=== PATIENT | male | born 1965 | race Hispanic/Latino ===

== ENCOUNTER 2018-02-08 16:19 | Inpatient (IN) | payer OTHER ==
[2018-02-08] MEDS ORDERED: Iohexol 240 (50 ml) PO ONE (18:05)
[2018-02-08] MEDS ORDERED: Sodium Chloride 0.9% 1,000 ML IV STA (18:10)
--- NOTE | 2018-02-08 18:16 | ED PDOC ---
HPI: Abdomen Time Seen by Provider: 02/08/18 16:45 Chief Complaint (Nursing): Abdominal Pain Chief Complaint (Provider): Abdominal Pain History Per: Patient History/Exam Limitations: no limitations Onset/Duration Of Symptoms: Days (x3) Current Symptoms Are (Timing): Still Present Location Of Pain/Discomfort: RLQ, Epigastric Associated Symptoms: denies: Fever, Vomiting Additional Complaint(s): 53 year old male presents to the ED complaining of abdominal pain for 3 days. Patient reports pain radiates from the epigastric area down to the RLQ and towards the back. He states his last bowel movement was this morning and was soft almost watery. He indicates he had a similar episode 3 years ago but it resolved on its own. Patient also indicates he had his lap bands removed. denies fever pr vomiting. PMD: Sergio Luna Past Medical History Reviewed: Historical Data, Nursing Documentation, Vital Signs Vital Signs: Last Vital Signs Temp 98.7 F 02/09/18 08:05 Pulse 89 02/09/18 08:05 Resp 20 02/09/18 08:05 BP 137/90 02/09/18 08:05 Pulse Ox 96 02/09/18 08:05 - Medical History PMH: CAD - Surgical History Other surgeries: Lap Bands (removed) - Family History Family History: States: Unknown Family Hx - Social History Current smoker - smoking cessation education provided: No Alcohol: Occasional Drugs: Denies - Allergies Allergies/Adverse Reactions: Allergies Allergy/AdvReac Type Severity Reaction Status Date / Time No Known Allergies Allergy Verified 02/08/18 16:40 Review of Systems ROS Statement: Except As Marked, All Systems Reviewed And Found Negative Constitutional: Negative for: Fever Gastrointestinal: Positive for: Abdominal Pain. Negative for: Nausea, Vomiting , Diarrhea Physical Exam - Reviewed Nursing Documentation Reviewed: Yes Vital Signs Reviewed: Yes - Physical Exam Appears: Positive for: Non-toxic, No Acute Distress Head Exam: Positive for: ATRAUMATIC, NORMOCEPHALIC Skin: Positive for: Normal Color, Warm, Dry Eye Exam: Positive for: Normal appearance ENT: Positive for: Normal ENT Inspection Neck: Positive for: Normal, Painless ROM Cardiovascular/Chest: Positive for: Regular Rate, Rhythm. Negative for: Murmur Respiratory: Positive for: Normal Breath Sounds. Negative for: Wheezing, Respiratory Distress Gastrointestinal/Abdominal: Positive for: Soft, Tenderness (RUQ and RLQ) Extremity: Positive for: Normal ROM Neurologic/Psych: Positive for: Alert, Oriented. Negative for: Motor/Sensory Deficits - Laboratory Results Result Diagrams: 02/08/18 18:27 02/08/18 18:27 - ECG O2 Sat by Pulse Oximetry: 97 (RA) Pulse Ox Interpretation: Normal Medical Decision Making Medical Decision Making: Initial Impression: Abdominal pain; r/o cholecystitis, appendicitis, gastritis Initial Plan: --CT abd/pelvis --CMP --Lipase --CBC --Morphine 4mg IV --Sodium chloride 1000mL IV --Iohexol 50mL PO --Zofran 4mg IV --UA 19:[address] Castillo. Pending CT and work up. Scribe Attestation: Documented by Fahad An acting as a scribe for Emmanuel Polk MD. Provider Scribe Attestation: All medical record entries made by the Scribe were at my direction and personally dictated by me. I have reviewed the chart and agree that the record accurately reflects my personal performance of the history, physical exam, medical decision making, and the department course for this patient. I have also personally directed, reviewed, and agree with the discharge instructions and disposition. Disposition - Clinical Impression Clinical Impression: Acute cholecystitis - Patient ED Disposition Is Patient to be Admitted: Transfer of Care - Disposition Disposition: Transfer of Care Disposition Time: 19:00 Condition: STABLE Patient Signed Over To: Rehan Castillo
[2018-02-08] MEDS ORDERED: Iohexol 240 (50 ml) ONE (18:20)
[2018-02-08 18:33] LABS: BASO % 0.3 % (0.0-2.0); EOS # 0.1 K/uL (0.0-0.7); EOS % 0.9 % (0.0-4.0); LYMPH # 1.7 K/uL (1.0-4.3); MEAN CELL VOLUME 87.1 fl (80.0-94.0); MEAN CORPUSCULAR HGB CONC 32.2 g/dL (33.0-37.0); MEAN PLATELET VOLUME 8.3 fl (7.2-11.7); MONO # 0.7 K/uL (0.0-0.8); MONO % 5.7 % (0.0-10.0); NEUT # 9.3 K/uL (1.8-7.0); NEUT % 79.1 % (50.0-75.0); RBC 5.69 Mil/uL (4.40-5.90); RED CELL DISTRIBUTION WIDTH 14.6 % (11.5-14.5); WHITE BLOOD COUNT 11.8 K/uL (4.8-10.8)
[2018-02-08 18:35] LABS: SQUAMOUS EPITHIAL < 1 /hpf (0-5); URINE BILIRUBIN NEGATIVE (NEGATIVE); URINE BLOOD SMALL (NEGATIVE); URINE CLARITY CLEAR (Clear); URINE COLOR YELLOW (YELLOW); URINE GLUCOSE (UA) NEG (Normal); URINE LEUKOCYTE ESTERASE NEG Leu/uL (Negative); URINE PROTEIN NEGATIVE (NEGATIVE); URINE UROBILINOGEN 0.2-1.0 mg/dL (0.2-1.0)
[2018-02-08 18:41] LABS: ALB/GLOB RATIO 1.4 (1.0-2.1); ALBUMIN 4.5 g/dL (3.5-5.0); ALT/SGPT 28 U/L (21-72); AST/SGOT 23 U/L (17-59); BLOOD UREA NITROGEN 17 mg/dl (9-20); CALCIUM 9.5 mg/dL (8.4-10.2); GFR NON-AFRICAN AMERICAN > 60; LIPASE 68 U/L (23-300)
--- NOTE | 2018-02-08 19:28 | ED PDOC ---
- Laboratory Results Result Diagrams: 02/08/18 18:27 02/08/18 18:27 - ECG O2 Sat by Pulse Oximetry: 97 (RA) Medical Decision Making Medical Decision Makin:00 Patient endorsed to me from Dr. Polk. Pending CT and workup. 21:18 CT Abd/pelvis FINDINGS: Lung bases: Atelectasis posterior lungs. ABDOMEN: Liver: Fatty infiltration of the liver. Gallbladder and bile ducts: Gallstones with extensive gallbladder wall thickening. One of the gallstones in the gallbladder neck or cystic duct. There is inflammation around the gallbladder. Small stone is seen in the distal common bile duct. Pancreas: Unremarkable. No mass. No ductal dilation. Spleen: Unremarkable. No splenomegaly. Adrenals: Unremarkable. No mass. Kidneys and ureters: Subcentimeter right renal cyst. No hydronephrosis. Stomach and bowel: Unremarkable. No obstruction. No mucosal thickening. PELVIS: Appendix: Normal appendix. Bladder: Unremarkable. No mass. Reproductive: Unremarkable as visualized. ABDOMEN and PELVIS: Intraperitoneal space: Unremarkable. No free air. No significant fluid collection. Bones/joints: No acute fracture. No dislocation. Soft tissues: Unremarkable. Vasculature: Unremarkable. No abdominal aortic aneurysm. Lymph nodes: Unremarkable. No enlarged lymph nodes. IMPRESSION: 1. Gallstones with extensive gallbladder wall thickening. One of the gallstones in the gallbladder neck or cystic duct. There is inflammation around the gallbladder. Findings are all consistent with acute cholecystitis. 2. Small stone is seen in the distal common bile duct. No CT evidence of pancreatitis 22:[address] explained to patient who will be admitted under Dr. Pulido who is covering for hospitalist Dr. Harmon with diagnosis of acute cholecystitis. IV Zosyn ordered. Surgical consult placed for Dr. Floyd Payne. Condition fair. Scribe Attestation: Documented by Fahad An acting as a scribe for Rehan Castillo MD. Provider Scribe Attestation: All medical record entries made by the Scribe were at my direction and personally dictated by me. I have reviewed the chart and agree that the record accurately reflects my personal performance of the history, physical exam, medical decision making, and the department course for this patient. I have also personally directed, reviewed, and agree with the discharge instructions and disposition. Disposition Discussed With Dr.: Dallin Pulido (Dr Efraín Payne) - Clinical Impression Clinical Impression: Acute cholecystitis - POA Present On Arrival: None - Disposition Disposition: Admitted as In-Patient Disposition Time: 22:00 Condition: STABLE
[2018-02-08] MEDS ORDERED: Iohexol 300 100 ML IJ ONE (20:40)
[2018-02-08] MEDS ORDERED: Sodium Chloride 0.9% 50 ML IV ONE (20:40)
[2018-02-08] MEDS ORDERED: Piperacillin/Tazobact 3.375 GM in Sodium Chloride 0.9% 100 ML IV STA (21:59)
[2018-02-08] MEDS ORDERED: Piperacillin/Tazobact 3.375 gm Inj IVPB ONE ×2 (22:39→23:01)
[2018-02-08] MEDS ORDERED: Morphine 4 MG/ML VIAL ONE (22:41)
--- NOTE | 2018-02-08 22:54 | CP.PCM.HP ---
History of Present Illness - History of Present Illness History of Present Illness: 53 yr old M presents to ED with complaint of severe sharp abdominal pain 04/16 which started today after eating a sandwich. PMHx includes [place] in 2012, negative cardiac catheterization at [facility] 2012, lap band removal 2015. Associated symptoms are 1 episode of nonbilious/nonbloody emesis and nausea. Pain is located in epigastric area and radiates to RLQ and back. Denies exacerbating or alleviating factors. Patient reports similar episodes in the past (1st one was 2.5 yrs ago) which have resolved on their own and for which he never sought medical attention, most recently he had an episode on wednesday as well as in October 2017; all episodes occur after a meal. PMD: Sergio Luna International Marketing Executive: Dr. Polo ([facility]): patient reports normal echo and stress test in 10/2017 PMHx: intermittent elevated blood pressure, [place] in 2012, negative cardiac catheterization at [facility] 2012 SurgHx: lap band s/p removal 2015; anal fistula 1992 FMHx: mother at 67 from pancreatic cancer, father is 86-HTN, strokes, [place] SocHx: denies tobacco, occasional etoh, reports occasional cannabis use Medications: none Allergies: NKDA Code status: Full code Emergency contact: Gina Antoine () [phone] ER course: 180/100 mmHg; HR 81, Temp 98.0 F, Resp rate 16, SpO2 97% -CBC: WBC 11.8, neutrophil % 79.1 -CMP wnl, AST 23, ALT 28, lipase 68, lactic acid 1.0 -UA: small blood, rest wnl -Abd/Pelvis CT: gallstones with extensive gallbladder wall thickening. One of the gallstones in the gallbladder neck or cystic duct. There is inflammation around the gallbladder. Findings are consistent with acute cholecystitis. Small stone seen in the distal common bile duct. No CT evidence of pancreatitis. Fatty liver. -ER treatment: Morphine 4mg IV once, NS 1L IV bolus, Zofran 4mg IV once, Zosyn 3.375gm IV once, Morphine 6mg IV once -repeat BP after pain medication administration: 144/81 mmHg with HR 80 -Blood culture and urine culture pending -Surgery consult: Floyd Gomez Present on Admission - Present on Admission Any Indicators Present on Admission: No History of DVT/PE: No History of Uncontrolled Diabetes: No Urinary Catheter: No Decubitus Ulcer Present: No History Surgical Site Infection Following: None Review of Systems - Constitutional Constitutional: absent: Chills - EENT Eyes: absent: Change in Vision Ears: absent: Dizziness Nose/Mouth/Throat: absent: Sore Throat - Cardiovascular Cardiovascular: absent: Chest Pain, Dyspnea - Respiratory Respiratory: absent: Hemoptysis - Gastrointestinal Gastrointestinal: Abdominal Pain (epigastric to RLQ ), Belching, Nausea, Vomiting. absent: Constipation, Diarrhea - Genitourinary Genitourinary: absent: Difficulty Urinating, Dysuria - Musculoskeletal Musculoskeletal: absent: Arthralgias - Neurological Neurological: absent: Dizziness, Weakness - Endocrine Endocrine: absent: Polydipsia, Polyphagia, Polyuria - Hematologic/Lymphatic Hematologic: absent: Easy Bleeding, Easy Bruising Past Patient History - Past Social History Alcohol: Occasional Drugs: Denies - PSYCHIATRIC Hx Substance Use: No - SURGICAL HISTORY Hx Coronary Stent: Yes - ANESTHESIA Hx Anesthesia: Yes Hx Anesthesia Reactions: No Meds Allergies/Adverse Reactions: Allergies Allergy/AdvReac Type Severity Reaction Status Date / Time No Known Allergies Allergy Verified 02/08/18 16:40 Physical Exam - Constitutional Appears: Other (uncomfortable, in pain) - Head Exam Head Exam: ATRAUMATIC, NORMOCEPHALIC - Eye Exam Eye Exam: EOMI, PERRL - ENT Exam ENT Exam: Mucous Membranes Moist - Neck Exam Neck exam: Positive for: Full Rom. Negative for: Lymphadenopathy - Respiratory Exam Respiratory Exam: Clear to Auscultation Bilateral, NORMAL BREATHING PATTERN. absent: Rales, Rhonchi, Wheezes - Cardiovascular Exam Cardiovascular Exam: REGULAR RHYTHM, +S1, +S2 - GI/Abdominal Exam GI & Abdominal Exam: Normal Bowel Sounds, Soft, Tenderness (severe tenderness to palpation in RUQ, positive schneider's sign) - Extremities Exam Extremities exam: Positive for: full ROM. Negative for: pedal edema - Neurological Exam Neurological exam: Alert, CN II-XII Intact, Oriented x3 - Psychiatric Exam Psychiatric exam: Normal Affect, Normal Mood - Skin Skin Exam: Dry, Normal Color, Warm Results - Vital Signs Recent Vital Signs: Last Vital Signs Temp 98 F 02/08/18 16:41 Pulse 81 02/08/18 16:41 Resp 16 09/04/18 16:41 BP 180/100 H 02/08/18 16:41 Pulse Ox 97 02/08/18 22:25 - Labs Result Diagrams: 02/08/18 18:27 02/08/18 18:27 Labs: Laboratory Results - last 24 hr 02/08/18 02/08/18 02/08/18 18:27 18:27 18:27 WBC 11.8 H RBC 5.69 Hgb 16.0 Hct 49.6 MCV 87.1 MCH 28.0 MCHC 32.2 L RDW 14.6 H Plt Count 246 MPV 8.3 Neut % (Auto) 79.1 H Lymph % (Auto) 14.0 L [place] % (Auto) 5.7 Eos % (Auto) 0.9 Baso % (Auto) 0.3 Neut # (Auto) 9.3 H Lymph # (Auto) 1.7 [place] # (Auto) 0.7 Eos # (Auto) 0.1 Baso # (Auto) 0.0 Sodium 139 Potassium 4.4 Chloride 101 Carbon Dioxide 33 H Anion Gap 9 L BUN 17 Creatinine 1.1 Est GFR ( Amer) > 60 Est GFR (Non-Af Amer) > 60 Random Glucose 114 H Calcium 9.5 Total Bilirubin 0.6 AST 23 ALT 28 Alkaline Phosphatase 44 Total Protein 7.7 Albumin 4.5 Globulin 3.1 Albumin/Globulin Ratio 1.4 Lipase 68 Urine Color Yellow Urine Clarity Clear Urine pH 5.0 Ur Specific [place] 1.023 Urine Protein Negative Urine Glucose (UA) Neg Urine Ketones Negative Urine Blood Small Urine Nitrate Negative Urine Bilirubin Negative Urine Urobilinogen 0.2-1.0 Ur Leukocyte Esterase Neg Urine RBC (Auto) 5 H Urine Microscopic WBC < 1 Ur Squamous Epith Cells < 1 Assessment & Plan - Assessment and Plan (Free Text) Assessment: 53 yr old M admitted for acute cholecystitis with PMHx including [place] in 2012, negative cardiac catheterization at [facility] 2012, lap band removal 2015. Acute Cholecystitis -Abd/Pelvis CT: gallstones with extensive gallbladder wall thickening. One of the gallstones in the gallbladder neck or cystic duct. There is inflammation around the gallbladder. Findings are consistent with acute cholecystitis. Small stone seen in the distal common bile duct. No CT evidence of pancreatitis. Fatty liver. -admit to med surg -NPO, IV fluids, pain management PRN, Zosyn 3.375 gm IV Q6, Zofran PRN nausea/ vomiting -Surgery consult appreciated: Floyd Gomez Elevated BP -chronic, intermittent -patient not on home meds\ -monitor BP DVT prophylaxis -SCD's for now-possible OR tomorrow -Lovenox 40mg SC QD ordered for next day - Date & Time Date: 02/08/18 Time: 22:53
--- NOTE | 2018-02-08 23:17 | CP.PCM.CON ---
<Alonzo Toledo - Last Filed: 02/09/18 07:15> History of Present Illness - History of Present Illness History of Present Illness: General Surgery Consult Note for Dr. Payne Reason for consult: abdominal pain, nausea/vomiting 53 M with PMH that includes presents to [facility] with complaint of abdominal pain and nausea/vomiting. Patient was seen and evaluated in the ED. He reports pain began Wednesday. It developed after eating. Patient decided to see if symptoms resolved because he thought he had food poisioning. He had similar episodes about 3 years ago and in October 2017. Patient reports pain had gotten worse today after eating a sandwich earlier and subsequently had an episode of nausea/ vomiting with NBNB emesis. He rates pain as severe. He describes pain as constant and sharp in epigastrium radiating to RUQ. Eating aggravates symptoms while rest helps. Denies recent illness or sick contacts. Denies fever/chills, chest pain, SOB, palpitations, diarrhea, constipation, incontinence, urinary symptoms. CT abd/pelvis was done in ED and revealed cholelithiasis with pericholecystic fluid,wall thickening and suspected distal CBD stone. ABUS was also ordered. PMD: Dr. Harmon PMH: PSH: lap band s/p removal; anal fistulotomy Medications: Denies Allergies: NKDA FH: pancreatic cancer, HTN, CVA, [place] Social: denies tobacco, occasional etoh, occasional cannabis use, Senior Office Support Assistant Sosa Review of Systems - Review of Systems All systems: reviewed and no additional remarkable complaints except (as per HPI ) Past Patient History - Past Social History Alcohol: Occasional Drugs: Denies - PSYCHIATRIC Hx Substance Use: No - SURGICAL HISTORY Hx Coronary Stent: Yes - ANESTHESIA Hx Anesthesia: Yes Hx Anesthesia Reactions: No Meds Allergies/Adverse Reactions: Allergies Allergy/AdvReac Type Severity Reaction Status Date / Time No Known Allergies Allergy Verified 02/08/18 16:40 Physical Exam - Constitutional Appears: Well, Non-toxic, No Acute Distress - Head Exam Head Exam: ATRAUMATIC, NORMOCEPHALIC - Eye Exam Eye Exam: EOMI, Normal appearance. absent: Scleral icterus Pupil Exam: PERRL - ENT Exam ENT Exam: Mucous Membranes Moist - Respiratory Exam Respiratory Exam: NORMAL BREATHING PATTERN - Cardiovascular Exam Cardiovascular Exam: REGULAR RHYTHM - GI/Abdominal Exam GI & Abdominal Exam: Normal Bowel Sounds, Soft, Tenderness (epigastrium). absent: Distended, Rebound, Rigid Additional comments: (-) schneider's sign - Extremities Exam Extremities exam: Positive for: normal capillary refill, pedal pulses present. Negative for: calf tenderness - Back Exam Back exam: absent: CVA tenderness (L), CVA tenderness (R) - Neurological Exam Neurological exam: Alert, Oriented x3 - Psychiatric Exam Psychiatric exam: Normal Affect, Normal Mood - Skin Skin Exam: Dry, Intact, Warm Results - Vital Signs Recent Vital Signs: Last Vital Signs Temp 98 F 02/08/18 16:41 Pulse 81 02/08/18 16:41 Resp 16 02/08/18 16:41 BP 180/100 H 02/08/18 16:41 Pulse Ox 97 02/08/18 22:25 - Labs Result Diagrams: 02/08/18 18:27 02/08/18 18:27 Labs: Laboratory Results - last 24 hr 02/08/18 02/08/18 02/08/18 18:27 18:27 18:27 WBC 11.8 H RBC 5.69 Hgb 16.0 Hct 49.6 MCV 87.1 MCH 28.0 MCHC 32.2 L RDW 14.6 H Plt Count 246 MPV 8.3 Neut % (Auto) 79.1 H Lymph % (Auto) 14.0 L [place] % (Auto) 5.7 Eos % (Auto) 0.9 Baso % (Auto) 0.3 Neut # (Auto) 9.3 H Lymph # (Auto) 1.7 [place] # (Auto) 0.7 Eos # (Auto) 0.1 Baso # (Auto) 0.0 Sodium 139 Potassium 4.4 Chloride 101 Carbon Dioxide 33 H Anion Gap 9 L BUN 17 Creatinine 1.1 Est GFR ( Amer) > 60 Est GFR (Non-Af Amer) > 60 Random Glucose 114 H Calcium 9.5 Total Bilirubin 0.6 AST 23 ALT 28 Alkaline Phosphatase 44 Total Protein 7.7 Albumin 4.5 Globulin 3.1 Albumin/Globulin Ratio 1.4 Lipase 68 Urine Color Yellow Urine Clarity Clear Urine pH 5.0 Ur Specific [place] 1.023 Urine Protein Negative Urine Glucose (UA) Neg Urine Ketones Negative Urine Blood Small Urine Nitrate Negative Urine Bilirubin Negative Urine Urobilinogen 0.2-1.0 Ur Leukocyte Esterase Neg Urine RBC (Auto) 5 H Urine Microscopic WBC < 1 Ur Squamous Epith Cells < 1 Assessment & Plan - Assessment and Plan (Free Text) Assessment: 53 M who presents for abdominal pain and nausea/vomiting; CT abd/pelvis shows cholelithiasis with pericholecystic fluid,wall thickening and suspected distal CBD stone Plan: -NPO -IV fluds -IV abx -Analgesics/Anti-emetics PRN -f/u ABUS -I's&O's -f/u AM labs -Further recommendation as per Dr. Elmer Toledo PGY2 - Date & Time Date: 02/09/18 Time: 00:00 <Sixto Medrano - Last Filed: 02/09/18 11:58> History of Present Illness - History of Present Illness History of Present Illness: Patient was seen and examined at the bedside. Agree with resident's note above. Meds - Medications Medications: Current Medications Hydromorphone HCl (Dilaudid) 1 mg IVP Q4 PRN PRN Reason: Pain, severe (8-10) Last Admin: 02/09/18 08:33 Dose: 1 mg Piperacillin Sod/Tazobactam (Sod 3.375 gm/ Sodium Chloride) 100 mls @ 100 mls/ hr IVPB Q6H SOURAV PRN Reason: Protocol Last Admin: 02/09/18 06:07 Dose: 100 mls/hr Potassium Chloride/Dextrose/Sod Cl (Potassium Chl 20 Meq In D5-1/2ns) 1,000 mls @ 125 mls/hr IV .Q8H SOURAV Stop: 02/10/18 07:47 Ondansetron HCl (Zofran Inj) 4 mg IVP Q6 PRN PRN Reason: Nausea/Vomiting Physical Exam - GI/Abdominal Exam Additional comments: soft, tender in the epigastrium and RUQ, ND, BS+, no rebound, no guarding, obese , well healed scars from prior bariatric surgeries Results - Vital Signs Recent Vital Signs: Last Vital Signs Temp 98.7 F 02/09/18 09:00 Pulse 89 02/09/18 09:00 Resp 20 02/09/18 09:00 BP 137/90 02/09/18 09:00 Pulse Ox 96 02/09/18 09:00 - Labs Result Diagrams: 02/09/18 07:30 09/05/18 07:30 Labs: Laboratory Results - last 24 hr 02/08/18 02/08/18 02/08/18 18:27 18:27 18:27 WBC 11.8 H RBC 5.69 Hgb 16.0 Hct 49.6 MCV 87.1 MCH 28.0 MCHC 32.2 L RDW 14.6 H Plt Count 246 MPV 8.3 Neut % (Auto) 79.1 H Lymph % (Auto) 14.0 L [place] % (Auto) 5.7 Eos % (Auto) 0.9 Baso % (Auto) 0.3 Neut # (Auto) 9.3 H Lymph # (Auto) 1.7 [place] # (Auto) 0.7 Eos # (Auto) 0.1 Baso # (Auto) 0.0 Sodium 139 Potassium 4.4 Chloride 101 Carbon Dioxide 33 H Anion Gap 9 L BUN 17 Creatinine 1.1 Est GFR ( Amer) > 60 Est GFR (Non-Af Amer) > 60 Random Glucose 114 H Lactic Acid Calcium 9.5 Total Bilirubin 0.6 AST 23 ALT 28 Alkaline Phosphatase 44 Total Protein 7.7 Albumin 4.5 Globulin 3.1 Albumin/Globulin Ratio 1.4 Lipase 68 Urine Color Yellow Urine Clarity Clear Urine pH 5.0 Ur Specific [place] 1.023 Urine Protein Negative Urine Glucose (UA) Neg Urine Ketones Negative Urine Blood Small Urine Nitrate Negative Urine Bilirubin Negative Urine Urobilinogen 0.2-1.0 Ur Leukocyte Esterase Neg Urine RBC (Auto) 5 H Urine Microscopic WBC < 1 Ur Squamous Epith Cells < 1 02/09/18 02/09/18 02/09/18 01:05 07:30 07:30 WBC 11.5 H RBC 5.41 Hgb 15.4 Hct 47.0 MCV 86.9 MCH 28.5 MCHC 32.8 L RDW 14.4 Plt Count 211 MPV 8.0 Neut % (Auto) 74.2 Lymph % (Auto) 14.3 L [place] % (Auto) 9.7 Eos % (Auto) 1.4 Baso % (Auto) 0.4 Neut # (Auto) 8.6 H Lymph # (Auto) 1.7 [place] # (Auto) 1.1 H Eos # (Auto) 0.2 Baso # (Auto) 0.0 Sodium 137 Potassium 3.9 Chloride 100 Carbon Dioxide 31 H Anion Gap 10 BUN 11 Creatinine 1.0 Est GFR ( Amer) > 60 Est GFR (Non-Af Amer) > 60 Random Glucose 111 H Lactic Acid 1.0 Calcium 8.8 Total Bilirubin 1.2 AST 18 ALT 30 Alkaline Phosphatase 36 L Total Protein 7.2 Albumin 4.0 Globulin 3.2 Albumin/Globulin Ratio 1.3 Lipase Urine Color Urine Clarity Urine pH Ur Specific [place] Urine Protein Urine Glucose (UA) Urine Ketones Urine Blood Urine Nitrate Urine Bilirubin Urine Urobilinogen Ur Leukocyte Esterase Urine RBC (Auto) Urine Microscopic WBC Ur Squamous Epith Cells - Imaging and Cardiology CT scan - abdomen Status: Image reviewed by me, Report reviewed by me Assessment & Plan - Assessment and Plan (Free Text) Plan: - Keep NPO - IV fluids - pain control - Continue Zosyn - MRCP - GI consultation - repeat labs in am - Will require cholecystectomy once choledocholithiasis gets resolved - Will follow
[2018-02-09] MEDS: Lactated Ringer's 1,000 ML IV SCH ×2 (01:08→07:41)
[2018-02-09] MEDS ORDERED: Piperacillin/Tazobact 3.375 GM in Sodium Chloride 0.9% 100 ML IVPB SCH (04:00)
[2018-02-09] MEDS: Piperacillin/Tazobact 3.375 GM in Sodium Chloride 0.9% 100 ML IVPB SCH ×4 (06:07→22:59)
[2018-02-09] MEDS ORDERED: Enoxaparin 40 mg Syringe SC SCH (09:00)
[2018-02-09 09:16] LABS: BASO % 0.4 % (0.0-2.0); EOS # 0.2 K/uL (0.0-0.7); EOS % 1.4 % (0.0-4.0); HEMOGLOBIN 15.4 g/dL (12.0-18.0); LYMPH # 1.7 K/uL (1.0-4.3); LYMPH % 14.3 % (20.0-40.0); MEAN CELL VOLUME 86.9 fl (80.0-94.0); MEAN CORPUSCULAR HEMOGLOBIN 28.5 pg (27.0-31.0); MEAN CORPUSCULAR HGB CONC 32.8 g/dL (33.0-37.0); MONO # 1.1 K/uL (0.0-0.8); MONO % 9.7 % (0.0-10.0); NEUT # 8.6 K/uL (1.8-7.0); NEUT % 74.2 % (50.0-75.0); RBC 5.41 Mil/uL (4.40-5.90); RED CELL DISTRIBUTION WIDTH 14.4 % (11.5-14.5); WHITE BLOOD COUNT 11.5 K/uL (4.8-10.8)
[2018-02-09 09:22] LABS: ALB/GLOB RATIO 1.3 (1.0-2.1); ALT/SGPT 30 U/L (21-72); AST/SGOT 18 U/L (17-59); BLOOD UREA NITROGEN 11 mg/dl (9-20); CALCIUM 8.8 mg/dL (8.4-10.2); GFR NON-AFRICAN AMERICAN > 60
--- NOTE | 2018-02-09 09:59 | CP.PCM.PN ---
Addendum entered and electronically signed by Elsie Jorgensen MD 02/09/18 13: 05: As per surgery (Dr. Henson): consulted GI (Dr. Amador - requested MRCP). Will consider lap sarika if stable after stone removal. Pt to remain NPO, Continue IVF, Continue abx, Continue pain meds PRN. Original Note: <Elsie Jorgensen - Last Filed: 02/09/18 11:35> Subjective - Date & Time of Evaluation Date of Evaluation: 02/09/18 Time of Evaluation: 09:53 - Subjective Subjective: Patient seen bedside in no acute distress. He complains of abdominal pain, although improved from yesterday. He denies dizziness, nausea, vomiting, chest pain at rest and during activity, shortness of breath, diarrhea, and constipation. Recently evaluated by [facility] 10/11/2017: Echo - EF 59%; mild mitral regurg, mild tricuspid regurg; abnormal E/A ratio suggestive of diastolic dysfunction Exercise Stress Test - no evidence for ischemia, excellent exercise tolerance Patient is hemodynamically stable and has functional capacity of 4 METS. He is medically optimized and medically cleared as CRI class II risk (1 point, prior [place] 2012, 0.9% risk) for a low-risk procedure. Objective - Vital Signs/Intake and Output Vital Signs (last 24 hours): Temp Pulse Resp BP Pulse Ox 98.7 F 89 20 137/90 97 02/09/18 08:05 02/09/18 08:05 02/09/18 08:05 02/09/18 08:05 02/09/18 08:20 - Medications Medications: Current Medications Enoxaparin Sodium (Lovenox) 40 mg SC DAILY [facility] PRN Reason: Protocol Hydromorphone HCl (Dilaudid) 1 mg IVP Q4 PRN PRN Reason: Pain, severe (8-10) Last Admin: 02/09/18 08:33 Dose: 1 mg Piperacillin Sod/Tazobactam (Sod 3.375 gm/ Sodium Chloride) 100 mls @ 100 mls/ hr IVPB Q6H [facility] PRN Reason: Protocol Last Admin: 02/09/18 06:07 Dose: 100 mls/hr Potassium Chloride/Dextrose/Sod Cl (Potassium Chl 20 Meq In D5-1/2ns) 1,000 mls @ 125 mls/hr IV .Q8H [facility] Stop: 02/10/18 07:47 Ondansetron HCl (Zofran Inj) 4 mg IVP Q6 PRN PRN Reason: Nausea/Vomiting - Labs Labs: 02/09/18 07:30 02/09/18 07:30 - Constitutional Appears: Non-toxic - Head Exam Head Exam: ATRAUMATIC, NORMOCEPHALIC - Eye Exam Eye Exam: Normal appearance - ENT Exam ENT Exam: Mucous Membranes Moist, Normal Exam - Neck Exam Neck Exam: Full ROM - Respiratory Exam Respiratory Exam: Clear to Ausculation Bilateral, NORMAL BREATHING PATTERN - Cardiovascular Exam Cardiovascular Exam: REGULAR RHYTHM - GI/Abdominal Exam GI & Abdominal Exam: Tenderness (RUQ and RLQ (light palpation)). absent: Guarding - Extremities Exam Extremities Exam: Normal Inspection - Neurological Exam Neurological Exam: Alert, Awake, Oriented x3 - Psychiatric Exam Psychiatric exam: Normal Affect, Normal Mood - Skin Skin Exam: Dry, Intact, Normal Color, Warm Assessment and Plan - Assessment and Plan (Free Text) Assessment: Assessment: 53 yr old M admitted for acute cholecystitis with PMHx of [place] in 2012, negative cardiac catheterization at [place] 2012, lap band removal 2015. Acute Cholecystitis -Abd/Pelvis CT: Findings consistent with acute cholecystitis. No CT evidence of pancreatitis. Fatty liver. -U/S: pending -NPO -IV fluids: D5 0.5 NS + 20 meq K -Pain management: Dilaudid 1 mg IVP Q4 PRN (severe 8-10) -Zosyn 3.375 gm IV Q6 -Zofran 4 mg IVP Q6 PRN -Waiting on Surgery (Dr. Payne) recommendations -[facility] 10/11/2017: -Echo - EF 59%; mild mitral and tricuspid regurg, abnormal E/A ratio suggestive of diastolic dysfunction -Exercise Stress Test - no evidence for ischemia, excellent exercise tolerance Elevated BP Chronic, intermittent Noncompliant with home medications Monitor BP DVT prophylaxis SCD Possible OR today <Ella Scott - Last Filed: 02/09/18 18:08> Objective - Vital Signs/Intake and Output Vital Signs (last 24 hours): Temp Pulse Resp BP Pulse Ox 98.0 F 92 H 20 125/84 94 L 02/09/18 17:00 02/09/18 17:00 02/09/18 17:00 02/09/18 17:00 02/09/18 17:00 - Medications Medications: Current Medications Hydromorphone HCl (Dilaudid) 1 mg IVP Q4 PRN PRN Reason: Pain, severe (8-10) Last Admin: 02/09/18 08:33 Dose: 1 mg Piperacillin Sod/Tazobactam (Sod 3.375 gm/ Sodium Chloride) 100 mls @ 100 mls/ hr IVPB Q6H [facility] PRN Reason: Protocol Last Admin: 02/09/18 12:48 Dose: 100 mls/hr Potassium Chloride/Dextrose/Sod Cl (Potassium Chl 20 Meq In D5-1/2ns) 1,000 mls @ 125 mls/hr IV .Q8H [facility] Stop: 02/10/18 07:47 Last Admin: 02/09/18 11:54 Dose: 125 mls/hr Ondansetron HCl (Zofran Inj) 4 mg IVP Q6 PRN PRN Reason: Nausea/Vomiting Pantoprazole Sodium (Protonix Inj) 40 mg IVP DAILY [facility] - Labs Labs: 02/09/18 07:30 02/09/18 07:30 Attending/Attestation - Attestation I have personally seen and examined this patient.: Yes I have fully participated in the care of the patient.: Yes I have reviewed all pertinent clinical information, including history, physical exam and plan: Yes Notes (Text): 02/09/18 18:08 Seen, examined, and discussed with resident. Agree with findings and plan as above.
--- NOTE | 2018-02-09 10:07 | CT ---
Date of service: 02/08/2018 PROCEDURE: CT Abdomen and Pelvis with contrast HISTORY: abd pain r sided COMPARISON: None. TECHNIQUE: Contrast dose: 95 mL Omnipaque 300 Radiation dose: Total exam DLP = 957 mGy-cm. This CT exam was performed using one or more of the following dose reduction techniques: Automated exposure control, adjustment of the mA and/or kV according to patient size, and/or use of iterative reconstruction technique. FINDINGS: LOWER THORAX: Unremarkable. LIVER: Unremarkable. No gross lesion or ductal dilatation. GALLBLADDER AND BILE DUCTS: UnremarkableMultiple gallstones within the gallbladder neck present measuring up to 1.1 cm. Gallbladder wall thickening and pericholecystic a amorphous edema also suggested. An acute cholecystitis needs to be considered. A 2.7 mm stone is also suggested in the common bile duct at the level the pancreatic head. PANCREAS: Apart from the stone in the common bile duct, no worrisome CT pathology suggested. . SPLEEN: Unremarkable. ADRENALS: Unremarkable. No mass. KIDNEYS AND URETERS: Unremarkable. No hydronephrosis. No solid mass. VASCULATURE: Unremarkable. No aortic aneurysm. BOWEL: Unremarkable. No obstruction. No gross mural thickening. APPENDIX: Normal appendix. PERITONEUM: Unremarkable. No free fluid. No free air. LYMPH NODES: Unremarkable. No enlarged lymph nodes. BLADDER: Unremarkable. REPRODUCTIVE: Unremarkable. BONES: No acute fracture. L5-S1 spondylosis with degenerative disc disease. OTHER FINDINGS: None. IMPRESSION: Gallbladder pathology is referenced above compatible with acute cholecystitis. Concordant results (preliminary interpretation) provided by [facility].
--- NOTE | 2018-02-09 11:48 | CP.PCM.PN ---
<GaneshAggie L - Last Filed: 02/09/18 11:44> Subjective - Date & Time of Evaluation Date of Evaluation: 02/09/18 Time of Evaluation: 11:44 - Subjective Subjective: General Surgery Pt seen and examined this AM with Dr. Medrano. He continues to have some abdominal pain however reports feeling better compared to yesterday. Results of imaging discussed with pt and the need for GI work up. Pt understand and is agreeable with plan. Labs and vitals noted PE Gen: Pt standing in room in NAD Skin: warm and dry Cardio: S1S2 rrr Lungs: CTA bilaterally Abd: Soft, (+) RUQ tenderness, (+) epigastric tenderness, (+) schneider;s A/P Cholecystitis As per CT scan, pt with stone in CBD Discussed need for GI with hospitalist, order entered for Dr. Ngo Pt discussed with Dr. Ngo, he is requesting a MRCP Pt to remain NPO Continue IVF Continue abx Continue pain meds prn. After stone in CBD removed and if labs okay, then pt for OR for lap sarika Objective - Vital Signs/Intake and Output Vital Signs (last 24 hours): Temp Pulse Resp BP Pulse Ox 98.7 F 89 20 137/90 96 02/09/18 09:00 02/09/18 09:00 02/09/18 09:00 02/09/18 09:00 02/09/18 09:00 - Medications Medications: Current Medications Hydromorphone HCl (Dilaudid) 1 mg IVP Q4 PRN PRN Reason: Pain, severe (8-10) Last Admin: 02/09/18 08:33 Dose: 1 mg Piperacillin Sod/Tazobactam (Sod 3.375 gm/ Sodium Chloride) 100 mls @ 100 mls/ hr IVPB Q6H [facility] PRN Reason: Protocol Last Admin: 02/09/18 06:07 Dose: 100 mls/hr Potassium Chloride/Dextrose/Sod Cl (Potassium Chl 20 Meq In D5-1/2ns) 1,000 mls @ 125 mls/hr IV .Q8H [facility] Stop: 02/10/18 07:47 Ondansetron HCl (Zofran Inj) 4 mg IVP Q6 PRN PRN Reason: Nausea/Vomiting - Labs Labs: 02/09/18 07:30 02/09/18 07:30 <Sixto Medrano - Last Filed: 02/09/18 11:59> Subjective - Subjective Subjective: Patient was seen and examined at the bedside. Agree with note above. Objective - Vital Signs/Intake and Output Vital Signs (last 24 hours): Temp Pulse Resp BP Pulse Ox 98.7 F 89 20 137/90 96 02/09/18 09:00 02/09/18 09:00 02/09/18 09:00 02/09/18 09:00 02/09/18 09:00 - Medications Medications: Current Medications Hydromorphone HCl (Dilaudid) 1 mg IVP Q4 PRN PRN Reason: Pain, severe (8-10) Last Admin: 02/09/18 08:33 Dose: 1 mg Piperacillin Sod/Tazobactam (Sod 3.375 gm/ Sodium Chloride) 100 mls @ 100 mls/ hr IVPB Q6H [facility] PRN Reason: Protocol Last Admin: 02/09/18 06:07 Dose: 100 mls/hr Potassium Chloride/Dextrose/Sod Cl (Potassium Chl 20 Meq In D5-1/2ns) 1,000 mls @ 125 mls/hr IV .Q8H [facility] Stop: 02/10/18 07:47 Last Admin: 02/09/18 11:54 Dose: 125 mls/hr Ondansetron HCl (Zofran Inj) 4 mg IVP Q6 PRN PRN Reason: Nausea/Vomiting - Labs Labs: 02/09/18 07:30 02/09/18 07:30
[2018-02-09] MEDS: Potassium Ch 20mEq in D5-1/2NS 1,000 ML IV SCH ×3 (11:54→23:19)
--- NOTE | 2018-02-09 12:57 | US ---
Date of service: 02/09/2018 HISTORY: evaluate for cholecystitis COMPARISON: February 08, 2018. CT abdomen and pelvis. TECHNIQUE: Sonographic evaluation of the right upper quadrant of the abdomen. FINDINGS: LIVER: Measures 19.1 cm in length. Hepatopedal blood flow. Fatty infiltration manifest ultrasonographically as increasedNormal echogenicity of the liver parenchyma. No mass. No intrahepatic bile duct dilatation. GALLBLADDER: Gallbladder wall thickening and trace pericholecystic fluid. Gallstones identified on recent CT are not apparent. No sonographic Parish's sign. COMMON BILE DUCT: Measures 6.8 mm. No stones. No dilatation. PANCREAS: Unremarkable as visualized. No mass. No ductal dilatation. RIGHT KIDNEY: Measures 5.2 x 11.3 cm in length. Normal echogenicity. No calculus, mass, or hydronephrosis. AORTA: No aneurysmal dilatation. IVC: Unremarkable. OTHER FINDINGS: None . IMPRESSION: Distended gallbladder without visible gallstones. Gallbladder wall thickening and pericholecystic fluid without sonographic Parish's sign.
--- NOTE | 2018-02-09 18:26 | MRI ---
Date of service: 02/09/18 MRCP Indication: Stones in CBD on CT scan Technique: Multiplanar, multisequence MR images of the abdomen were obtained, including heavily T2 weighted MRCP images of the biliary system. Rotating maximum intensity projection images of the biliary system were generated. A total of 519 images were submitted for review. Comparison: Gallbladder ultrasound performed 02/09/18 ; CT abdomen and pelvis with contrast performed 02/08/18 Findings: Hepatic steatosis. The gallbladder appears thick walled. Mild pericholecystic edema. Cholelithiasis including 6 mm calculus at the gallbladder neck. 3 mm filling defect within the distal CBD consistent with calculus. There is no intrahepatic biliary ductal dilatation. Common bile duct measures approximately 6 mm in diameter. Question mild narrowing of the common bile duct at its midportion. The pancreatic duct appears within normal limits of caliber. No filling defects are seen in the pancreatic duct. 7 mm T2 right renal hyperintensity, possibly cyst. 19 mm probable splenule. The noncontrast adrenal glands, kidneys, spleen, and pancreas appear otherwise grossly unremarkable. No bulky abdominal lymphadenopathy is seen. Small hiatal hernia. No acute osseous abnormality is detected. Impression: Gallbladder wall thickening and mild pericholecystic edema. Cholelithiasis including 6 mm calculus noted at the gallbladder neck. 3 mm filling defect within the distal common bile duct consistent with calculus is seen on prior CT. Constellation of findings appear consistent with acute cholecystitis. Additionally, there is evidence of narrowing of the common bile duct at its midportion. Correlate clinically. 7 mm probable right renal cyst Hepatic steatosis.
[2018-02-10] MEDS: Potassium Ch 20mEq in D5-1/2NS 1,000 ML IV SCH (00:30)
[2018-02-10] MEDS: Piperacillin/Tazobact 3.375 GM in Sodium Chloride 0.9% 100 ML IVPB SCH ×3 (05:54→17:02)
[2018-02-10 06:21] LABS: BASO % 0.3 % (0.0-2.0); EOS # 0.2 K/uL (0.0-0.7); EOS % 2.4 % (0.0-4.0); HEMOGLOBIN 15.2 g/dL (12.0-18.0); LYMPH # 1.5 K/uL (1.0-4.3); LYMPH % 18.8 % (20.0-40.0); MEAN CELL VOLUME 87.6 fl (80.0-94.0); MEAN CORPUSCULAR HEMOGLOBIN 28.8 pg (27.0-31.0); MEAN CORPUSCULAR HGB CONC 32.9 g/dL (33.0-37.0); MONO # 0.8 K/uL (0.0-0.8); MONO % 9.9 % (0.0-10.0); NEUT # 5.6 K/uL (1.8-7.0); NEUT % 68.6 % (50.0-75.0); RBC 5.26 Mil/uL (4.40-5.90); RED CELL DISTRIBUTION WIDTH 14.5 % (11.5-14.5); WHITE BLOOD COUNT 8.2 K/uL (4.8-10.8)
[2018-02-10 06:37] LABS: ALB/GLOB RATIO 1.3 (1.0-2.1); ALBUMIN 3.9 g/dL (3.5-5.0); ALT/SGPT 25 U/L (21-72); AST/SGOT 17 U/L (17-59); BLOOD UREA NITROGEN 10 mg/dl (9-20); CALCIUM 8.9 mg/dL (8.4-10.2); GFR NON-AFRICAN AMERICAN > 60
[2018-02-10 06:44] LABS: INR 1.3; PROTHROMBIN TIME 14.3 Seconds (9.8-13.1)
[2018-02-10 06:47] LABS: PARTIAL THROMBOPLASTIN TIME 31.6 Seconds (25.6-37.1)
--- NOTE | 2018-02-10 07:57 | CP.PCM.PN ---
<Chris Stoutaf - Last Filed: 02/10/18 07:54> Subjective - Date & Time of Evaluation Date of Evaluation: 02/10/18 Time of Evaluation: 07:54 - Subjective Subjective: Surgery: Dr. Medrano Pt seen and examined. No acute overnight events. States he feels well this AM and pain is well controlled. He admits to being hungry but denies any other complaints. Denies nausea/vomiting, fevers/chills. Objective - Vital Signs/Intake and Output Vital Signs (last 24 hours): Temp Pulse Resp BP Pulse Ox 99.6 F 88 18 142/82 96 02/09/18 23:41 02/09/18 23:41 02/09/18 23:41 02/09/18 23:41 02/09/18 23:41 Intake and Output: 02/10/18 02/10/18 06:59 18:59 Intake Total 375 Balance 375 - Medications Medications: Current Medications Hydromorphone HCl (Dilaudid) 1 mg IVP Q4 PRN PRN Reason: Pain, severe (8-10) Last Admin: 02/09/18 23:18 Dose: 1 mg Piperacillin Sod/Tazobactam (Sod 3.375 gm/ Sodium Chloride) 100 mls @ 100 mls/ hr IVPB Q6H [facility] PRN Reason: Protocol Last Admin: 02/10/18 05:54 Dose: 100 mls/hr Ondansetron HCl (Zofran Inj) 4 mg IVP Q6 PRN PRN Reason: Nausea/Vomiting Pantoprazole Sodium (Protonix Inj) 40 mg IVP DAILY [facility] - Labs Labs: 02/10/18 05:40 02/10/18 05:40 PT 14.3 Seconds (9.8-13.1) H 02/10/18 05:40 INR 1.3 02/10/18 05:40 APTT 31.6 Seconds (25.6-37.1) 02/10/18 05:40 - Constitutional Appears: No Acute Distress - Head Exam Head Exam: ATRAUMATIC, NORMOCEPHALIC - ENT Exam ENT Exam: Mucous Membranes Moist - Respiratory Exam Respiratory Exam: NORMAL BREATHING PATTERN - Cardiovascular Exam Cardiovascular Exam: RRR - GI/Abdominal Exam GI & Abdominal Exam: Soft, Tenderness (RUQ ). absent: Distended, Guarding, Rebound - Extremities Exam Extremities Exam: absent: Calf Tenderness - Neurological Exam Neurological Exam: Alert, Awake, Oriented x3 - Skin Skin Exam: Dry, Warm Assessment and Plan - Assessment and Plan (Free Text) Assessment: 53M with cholecystitis & choledocholithiasis Plan: - MRCP showed 3mm stone in distal CBD - GI is on board and will discuss ERCP with them prior to OR - plan for cholecystectomy after ERCP - d/w Dr. Mitchell Stout <Sixto Medrano - Last Filed: 02/10/18 17:17> Subjective - Date & Time of Evaluation Time of Evaluation: 16:00 - Subjective Subjective: Patient was seen and examined at the bedside. Agree with resident's note above Objective - Vital Signs/Intake and Output Vital Signs (last 24 hours): Temp Pulse Resp BP Pulse Ox 97.9 F 82 18 149/72 95 02/10/18 16:30 02/10/18 16:30 02/10/18 16:30 02/10/18 16:30 02/10/18 16:30 Intake and Output: 02/10/18 02/10/18 06:59 18:59 Intake Total 375 Balance 375 - Medications Medications: Current Medications Hydromorphone HCl (Dilaudid) 1 mg IVP Q4 PRN PRN Reason: Pain, severe (8-10) Last Admin: 02/09/18 23:18 Dose: 1 mg Piperacillin Sod/Tazobactam (Sod 3.375 gm/ Sodium Chloride) 100 mls @ 100 mls/ hr IVPB Q6H [facility] PRN Reason: Protocol Last Admin: 02/10/18 17:02 Dose: 100 mls/hr Potassium Chloride/Dextrose/Sod Cl (Potassium Chl 20 Meq In D5-Ns) 1,000 mls @ 125 mls/hr IV .Q8H [facility] Stop: 02/11/18 12:25 Ciprofloxacin (Cipro 400mg/200ml Dsw) 400 mg in 200 mls @ 200 mls/hr IVPB [facility]NC[facility] ONE PRN Reason: Protocol Stop: 02/11/18 10:59 Indomethacin (Indocin Suppository) 100 mg [place] ONCE ONE Stop: 02/11/18 10:31 Ondansetron HCl (Zofran Inj) 4 mg IVP Q6 PRN PRN Reason: Nausea/Vomiting Pantoprazole Sodium (Protonix Inj) 40 mg IVP DAILY [facility] Last Admin: 02/10/18 08:36 Dose: 40 mg - Labs Labs: 02/10/18 05:40 02/10/18 05:40 PT 14.3 Seconds (9.8-13.1) H 02/10/18 05:40 INR 1.3 02/10/18 05:40 APTT 31.6 Seconds (25.6-37.1) 02/10/18 05:40 - GI/Abdominal Exam Additional comments: soft, NT, ND, BS+, no rebound, no guarding, negative Parish's sign Assessment and Plan - Assessment and Plan (Free Text) Plan: - start clear liquid diet - NPO after midnight - For ERCP with GI tomorrow - repeat labs in am - Continue antibiotics - Will follow
[2018-02-10] MEDS ORDERED: Enoxaparin 40 mg Syringe SC SCH (09:00)
--- NOTE | 2018-02-10 09:54 | CP.PCM.PN ---
<Elsie Jorgensen - Last Filed: 02/10/18 10:15> Subjective - Date & Time of Evaluation Date of Evaluation: 02/10/18 Time of Evaluation: 08:30 - Subjective Subjective: Patient seen bedside in no acute distress. He complains of very mild abdominal pain but significantly improved from admission. Patient was quite irritable and expressed frustration that the ERCP is scheduled for tomorrow. He is hemodynamically stable and denies dizziness, nausea, vomiting, chest pain at rest and during activity, shortness of breath, diarrhea, and constipation. Objective - Vital Signs/Intake and Output Vital Signs (last 24 hours): Temp Pulse Resp BP Pulse Ox 98 F 80 20 134/92 H 95 02/10/18 08:14 02/10/18 08:14 02/10/18 08:14 02/10/18 08:14 02/10/18 08:14 Intake and Output: 02/10/18 02/10/18 06:59 18:59 Intake Total 375 Balance 375 - Medications Medications: Current Medications Hydromorphone HCl (Dilaudid) 1 mg IVP Q4 PRN PRN Reason: Pain, severe (8-10) Last Admin: 02/09/18 23:18 Dose: 1 mg Piperacillin Sod/Tazobactam (Sod 3.375 gm/ Sodium Chloride) 100 mls @ 100 mls/ hr IVPB Q6H [facility] PRN Reason: Protocol Last Admin: 02/10/18 05:54 Dose: 100 mls/hr Ondansetron HCl (Zofran Inj) 4 mg IVP Q6 PRN PRN Reason: Nausea/Vomiting Pantoprazole Sodium (Protonix Inj) 40 mg IVP DAILY [facility] Last Admin: 02/10/18 08:36 Dose: 40 mg - Labs Labs: 02/10/18 05:40 02/10/18 05:40 PT 14.3 Seconds (9.8-13.1) H 02/10/18 05:40 INR 1.3 02/10/18 05:40 APTT 31.6 Seconds (25.6-37.1) 02/10/18 05:40 - Constitutional Appears: Non-toxic - Head Exam Head Exam: NORMAL INSPECTION - Eye Exam Eye Exam: Normal appearance - ENT Exam ENT Exam: Mucous Membranes Moist, Normal Exam - Neck Exam Neck Exam: Normal Inspection - Respiratory Exam Respiratory Exam: Clear to Ausculation Bilateral, NORMAL BREATHING PATTERN - Cardiovascular Exam Cardiovascular Exam: REGULAR RHYTHM - GI/Abdominal Exam GI & Abdominal Exam: Tenderness. absent: Distended, Guarding, Rebound Additional comments: mild, RUQ - Back Exam Back Exam: NORMAL INSPECTION - Neurological Exam Neurological Exam: Alert, Awake, Oriented x3 - Psychiatric Exam Psychiatric exam: Normal Affect, Normal Mood - Skin Skin Exam: Dry, Normal Color, Warm Assessment and Plan - Assessment and Plan (Free Text) Assessment: 53 yr old M admitted for acute cholecystitis with PMHx of [place] in 2012, negative cardiac catheterization at [place] 2012, lap band removal 2015. Acute Cholecystitis -NPO -IV fluids: D5 0.5 NS + 20 meq K -Pain management: Dilaudid 1 mg IVP Q4 PRN (severe 8-10) -Zosyn 3.375 gm IV Q6 -Zofran 4 mg IVP Q6 PRN -Abd/Pelvis CT: Findings consistent with acute cholecystitis. No CT evidence of pancreatitis. Fatty liver. -U/S: Distended gallbladder without visible gallstones. Gallbladder wall thickening and pericholecystic fluid without sonographic Parish's sign. -MRCP: Hepatic steatosis. Gallbladder appears thick walled. Mild pericholecystic edema. Cholelithiasis including 6mm calculus at the gallbladder neck. 3mm filling defect within distal CBD consistent with calculus. No intrahepatic biliary duct dilation. CBD measures approxametly 6mm in diameter. -ERCP scheduled for 02/[address] Amador -As per surgery: possible lap sarika if stable s/p ERCP Elevated BP -Chronic, intermittent -Noncompliant with home medications -Monitor BP -[facility] 10/11/2017: -Echo - EF 59%; mild mitral and tricuspid regurg, abnormal E/A ratio suggestive of diastolic dysfunction -Exercise Stress Test - no evidence for ischemia, excellent exercise tolerance DVT prophylaxis -SCD, ambulating <Ella Scott - Last Filed: 02/10/18 15:25> Objective - Vital Signs/Intake and Output Vital Signs (last 24 hours): Temp Pulse Resp BP Pulse Ox 98 F 80 20 134/92 H 95 02/10/18 08:14 02/10/18 08:14 02/10/18 08:14 02/10/18 08:14 02/10/18 08:14 Intake and Output: 02/10/18 02/10/18 06:59 18:59 Intake Total 375 Balance 375 - Medications Medications: Current Medications Hydromorphone HCl (Dilaudid) 1 mg IVP Q4 PRN PRN Reason: Pain, severe (8-10) Last Admin: 02/09/18 23:18 Dose: 1 mg Piperacillin Sod/Tazobactam (Sod 3.375 gm/ Sodium Chloride) 100 mls @ 100 mls/ hr IVPB Q6H [facility] PRN Reason: Protocol Last Admin: 02/10/18 11:20 Dose: 100 mls/hr Potassium Chloride/Dextrose/Sod Cl (Potassium Chl 20 Meq In D5-Ns) 1,000 mls @ 125 mls/hr IV .Q8H [facility] Stop: 02/11/18 12:25 Ondansetron HCl (Zofran Inj) 4 mg IVP Q6 PRN PRN Reason: Nausea/Vomiting Pantoprazole Sodium (Protonix Inj) 40 mg IVP DAILY [facility] Last Admin: 02/10/18 08:36 Dose: 40 mg - Labs Labs: 02/10/18 05:40 02/10/18 05:40 PT 14.3 Seconds (9.8-13.1) H 02/10/18 05:40 INR 1.3 02/10/18 05:40 APTT 31.6 Seconds (25.6-37.1) 02/10/18 05:40 Attending/Attestation - Attestation I have personally seen and examined this patient.: Yes I have fully participated in the care of the patient.: Yes I have reviewed all pertinent clinical information, including history, physical exam and plan: Yes Notes (Text): 02/10/18 15:25 Seen, examined, and discussed with resident. Agree with findings and plan as above.
[2018-02-10] MEDS ORDERED: Potassium Ch 20mEq in D5-1/2NS 1,000 ML IV SCH (12:30)
[2018-02-10] MEDS ORDERED: Piperacillin/Tazobact 3.375 GM in Sodium Chloride 0.9% 100 ML IVPB SCH (16:00)
[2018-02-10] MEDS: Potassium Chl 20 mEq in D5-NS 1,000 ML IV SCH ×2 (22:02→22:06)
[2018-02-11] MEDS: Piperacillin/Tazobact 3.375 GM in Sodium Chloride 0.9% 100 ML IVPB SCH ×3 (00:15→12:12)
[2018-02-11 06:13] LABS: BASO % 0.5 % (0.0-2.0); EOS # 0.3 K/uL (0.0-0.7); EOS % 4.3 % (0.0-4.0); HEMOGLOBIN 15.2 g/dL (12.0-18.0); LYMPH # 1.7 K/uL (1.0-4.3); LYMPH % 23.3 % (20.0-40.0); MEAN CELL VOLUME 87.3 fl (80.0-94.0); MEAN CORPUSCULAR HEMOGLOBIN 28.6 pg (27.0-31.0); MEAN CORPUSCULAR HGB CONC 32.7 g/dL (33.0-37.0); MEAN PLATELET VOLUME 7.8 fl (7.2-11.7); MONO # 0.7 K/uL (0.0-0.8); MONO % 10.4 % (0.0-10.0); NEUT # 4.4 K/uL (1.8-7.0); NEUT % 61.5 % (50.0-75.0); RBC 5.32 Mil/uL (4.40-5.90); RED CELL DISTRIBUTION WIDTH 14.2 % (11.5-14.5); WHITE BLOOD COUNT 7.2 K/uL (4.8-10.8)
[2018-02-11 06:29] LABS: ALB/GLOB RATIO 1.2 (1.0-2.1); ALBUMIN 3.8 g/dL (3.5-5.0); ALT/SGPT 25 U/L (21-72); AST/SGOT 20 U/L (17-59); BLOOD UREA NITROGEN 8 mg/dl (9-20); GFR NON-AFRICAN AMERICAN > 60
--- NOTE | 2018-02-11 06:49 | CP.PCM.PN ---
Subjective - Date & Time of Evaluation Date of Evaluation: 02/11/18 Time of Evaluation: 06:49 - Subjective Subjective: Patient seen bedside in no acute distress. He complains of very mild abdominal pain similar to yesterday but significantly improved from admission. Patient disposition is pleasant today, but would like to leave after ERCP and return for a scheduled lap sarika (surgery agreeable if stable s/p ERCP today). He is hemodynamically stable and denies dizziness, nausea, vomiting, chest pain, shortness of breath, diarrhea, and constipation. Objective - Vital Signs/Intake and Output Vital Signs (last 24 hours): Temp Pulse Resp BP Pulse Ox 98.3 F 79 18 153/88 H 95 02/11/18 01:00 02/11/18 01:00 02/11/18 01:00 02/11/18 01:00 02/11/18 01:00 - Medications Medications: Current Medications Hydromorphone HCl (Dilaudid) 1 mg IVP Q4 PRN PRN Reason: Pain, severe (8-10) Last Admin: 02/09/18 23:18 Dose: 1 mg Piperacillin Sod/Tazobactam (Sod 3.375 gm/ Sodium Chloride) 100 mls @ 100 mls/ hr IVPB Q6H [facility] PRN Reason: Protocol Last Admin: 02/11/18 05:47 Dose: 100 mls/hr Potassium Chloride/Dextrose/Sod Cl (Potassium Chl 20 Meq In D5-Ns) 1,000 mls @ 125 mls/hr IV .Q8H [facility] Stop: 02/11/18 12:25 Last Admin: 02/10/18 22:06 Dose: 125 mls/hr Ciprofloxacin (Cipro 400mg/200ml Dsw) 400 mg in 200 mls @ 200 mls/hr IVPB [employer] ONE PRN Reason: Protocol Stop: 02/11/18 10:59 Indomethacin (Indocin Suppository) 100 mg RI ONCE ONE Stop: 02/11/18 10:31 Ondansetron HCl (Zofran Inj) 4 mg IVP Q6 PRN PRN Reason: Nausea/Vomiting Pantoprazole Sodium (Protonix Inj) 40 mg IVP DAILY [facility] Last Admin: 02/10/18 08:36 Dose: 40 mg - Labs Labs: 02/11/18 05:45 02/11/18 05:45 PT 14.3 Seconds (9.8-13.1) H 02/10/18 05:40 INR 1.3 02/10/18 05:40 APTT 31.6 Seconds (25.6-37.1) 02/10/18 05:40 - Constitutional Appears: No Acute Distress - Head Exam Head Exam: ATRAUMATIC - Eye Exam Eye Exam: Normal appearance - ENT Exam ENT Exam: Mucous Membranes Moist, Normal Exam, Normal External Ear Exam - Neck Exam Neck Exam: Full ROM - Respiratory Exam Respiratory Exam: Clear to Ausculation Bilateral, NORMAL BREATHING PATTERN - Cardiovascular Exam Cardiovascular Exam: REGULAR RHYTHM - GI/Abdominal Exam GI & Abdominal Exam: Soft, Tenderness (very minimal RUQ - significantly improved ) - Extremities Exam Extremities Exam: Normal Inspection - Neurological Exam Neurological Exam: Alert, Awake, Oriented x3 - Psychiatric Exam Psychiatric exam: Normal Affect, Normal Mood - Skin Skin Exam: Dry, Normal Color, Warm Assessment and Plan - Assessment and Plan (Free Text) Assessment: 53 yr old M admitted for acute cholecystitis with PMHx of [place] in 2012, negative cardiac catheterization at [facility] 2012, lap band removal 2015. Acute Cholecystitis -NPO -IV fluids: D5 0.5 NS + 20 meq K -Pain management: Dilaudid 1 mg IVP Q4 PRN (severe 8-10) -Zosyn 3.375 gm IV Q6 -Zofran 4 mg IVP Q6 PRN -Abd/Pelvis CT: Findings consistent with acute cholecystitis. No CT evidence of pancreatitis. Fatty liver. -U/S: Distended gallbladder without visible gallstones. Gallbladder wall thickening and pericholecystic fluid without sonographic Parish's sign. -MRCP: Hepatic steatosis. Gallbladder appears thick walled. Mild pericholecystic edema. Cholelithiasis including 6mm calculus at the gallbladder neck. 3mm filling defect within distal CBD consistent with calculus. No intrahepatic biliary duct dilation. CBD measures approxametly 6mm in diameter. -ERCP scheduled for 02/[address] Amador -As per surgery: possible lap sarika to be scheduled if stable s/p ERCP -will dc today if stable s/p ERCP; to return for scheduled lap sarika Elevated BP -Chronic, intermittent -Noncompliant with home medications -Monitor BP -[facility] 10/11/2017: -Echo - EF 59%; mild mitral and tricuspid regurg, abnormal E/A ratio suggestive of diastolic dysfunction -Exercise Stress Test - no evidence for ischemia, excellent exercise tolerance DVT prophylaxis -SCD, ambulating
[2018-02-11] MEDS ORDERED: Iohexol 240 (50 ml) ONE (07:19)
--- NOTE | 2018-02-11 08:22 | CON ---
DATE: 02/09/2018 REFERRING PHYSICIAN: Dallin Pulido MD REASON FOR CONSULTATION: Cholecystitis. HISTORY OF PRESENT ILLNESS: This is a pleasant 53-year-old male with a history of [place] in the past with negative CAT who comes in with epigastric discomfort on and off for the past three days. The pain has improved but is present in the right upper quadrant. Denies any fever or chills. Currently lying in bed comfortably, in no apparent distress. PAST MEDICAL HISTORY: As above. PAST SURGICAL HISTORY: As above. MEDICATIONS: Have been reviewed. REVIEW OF SYSTEMS: All other systems have been reviewed and negative apart from the HPI. PHYSICAL EXAMINATION: VITAL SIGNS: Here in the hospital grossly unremarkable. GENERAL: This is a pleasant elderly female, lying in bed comfortably, in no apparent distress. HEENT: Head is normocephalic and atraumatic. Eyes: Pupils are equally reactive to light bilaterally. No conjunctival pallor or icterus. NECK: Supple. Normal range of motion. No lymphadenopathy appreciated. LUNGS: Coarse breath sounds bilaterally. HEART: S1 and S2. Regular rate and rhythm. ABDOMEN: Soft. Discomfort in the right upper quadrant. No rebound. No guarding. RECTAL: Deferred. EXTREMITIES: Pulses felt bilaterally. SKIN: Warm, dry, and intact. NEUROLOGIC: A and O x3. LABORATORY DATA: All labs are available. Labs and radiology have been reviewed. Labs include WBC is 11.8, hemoglobin 15. are absolutely normal. CT of the CBD for significant cholecystitis. ASSESSMENT AND PLAN: This is a 53-year-old male with cholecystitis with questionable nonocclusive common bile duct stone. Plan for magnetic resonance cholangiopancreatography. I will follow the patient with you. Thank you for this consult. Nazario Ngo MD/ PhD cc: Den Roman MD MTDD
[2018-02-11] MEDS ORDERED: Lactated Ringer's 500 ML IV ONE (09:39)
--- NOTE | 2018-02-11 09:54 | CP.PCM.PN ---
<Anisa Stout - Last Filed: 02/11/18 09:52> Subjective - Date & Time of Evaluation Date of Evaluation: 02/11/18 Time of Evaluation: 07:00 - Subjective Subjective: Surgery: Dr. Medrano Pt seen and examined. No acute overnight events. States he feels well and his abdominal pain has improved quite a bit. He denies nausea/vomiting, fevers/ chills or other complaints at this time. Objective - Vital Signs/Intake and Output Vital Signs (last 24 hours): Temp Pulse Resp BP Pulse Ox 97.6 F 72 18 136/93 H 97 02/11/18 08:10 02/11/18 08:10 02/11/18 08:10 02/11/18 08:10 02/11/18 08:10 Intake and Output: 02/11/18 02/11/18 06:59 18:59 Intake Total 0 Balance 0 - Medications Medications: Current Medications Hydromorphone HCl (Dilaudid) 1 mg IVP Q4 PRN PRN Reason: Pain, severe (8-10) Last Admin: 02/09/18 23:18 Dose: 1 mg Piperacillin Sod/Tazobactam (Sod 3.375 gm/ Sodium Chloride) 100 mls @ 100 mls/ hr IVPB Q6H [facility] PRN Reason: Protocol Last Admin: 02/11/18 05:47 Dose: 100 mls/hr Potassium Chloride/Dextrose/Sod Cl (Potassium Chl 20 Meq In D5-Ns) 1,000 mls @ 125 mls/hr IV .Q8H [facility] Stop: 02/11/18 12:25 Last Admin: 02/10/18 22:06 Dose: 125 mls/hr Ciprofloxacin (Cipro 400mg/200ml Dsw) 400 mg in 200 mls @ 200 mls/hr IVPB [employer] PRN Reason: Protocol Stop: 02/11/18 10:59 Indomethacin (Indocin Suppository) 100 mg [place] ONCE [facility] Stop: 02/11/18 10:31 Ondansetron HCl (Zofran Inj) 4 mg IVP Q6 PRN PRN Reason: Nausea/Vomiting Pantoprazole Sodium (Protonix Inj) 40 mg IVP DAILY [facility] Last Admin: 02/11/18 09:04 Dose: 40 mg - Labs Labs: 02/11/18 05:45 02/11/18 05:45 PT 14.3 Seconds (9.8-13.1) H 02/10/18 05:40 INR 1.3 02/10/18 05:40 APTT 31.6 Seconds (25.6-37.1) 02/10/18 05:40 - Constitutional Appears: Well, No Acute Distress - Head Exam Head Exam: ATRAUMATIC, NORMOCEPHALIC - Eye Exam Eye Exam: Normal appearance - ENT Exam ENT Exam: Mucous Membranes Moist - Respiratory Exam Respiratory Exam: NORMAL BREATHING PATTERN - Cardiovascular Exam Cardiovascular Exam: RRR - GI/Abdominal Exam GI & Abdominal Exam: Soft. absent: Distended, Tenderness, Rebound - Extremities Exam Extremities Exam: absent: Tenderness - Neurological Exam Neurological Exam: Alert, Awake, Oriented x3 - Skin Skin Exam: Dry, Warm Assessment and Plan - Assessment and Plan (Free Text) Assessment: 53M with cholecystitis & choledocholithiasis Plan: - Pt to go for ERCP today with GI - plan for lap sarika pending ERCP results - will discuss further recs with Dr. Mitchell Stout <Sixto Medrano - Last Filed: 02/11/18 13:08> Subjective - Date & Time of Evaluation Time of Evaluation: 12:00 - Subjective Subjective: Patient was seen and examined at the bedside. S/P ERCP, denies any abdominal pain. Objective - Vital Signs/Intake and Output Vital Signs (last 24 hours): Temp Pulse Resp BP Pulse Ox 97.7 F 74 18 151/78 H 98 02/11/18 11:30 02/11/18 11:30 02/11/18 11:30 02/11/18 11:30 02/11/18 11:30 Intake and Output: 02/11/18 02/11/18 06:59 18:59 Intake Total 500 Balance 500 - Medications Medications: Current Medications Hydromorphone HCl (Dilaudid) 1 mg IVP Q4 PRN PRN Reason: Pain, severe (8-10) Last Admin: 02/09/18 23:18 Dose: 1 mg Piperacillin Sod/Tazobactam (Sod 3.375 gm/ Sodium Chloride) 100 mls @ 100 mls/ hr IVPB Q6H [facility] PRN Reason: Protocol Last Admin: 02/11/18 12:12 Dose: 100 mls/hr Ondansetron HCl (Zofran Inj) 4 mg IVP Q6 PRN PRN Reason: Nausea/Vomiting Pantoprazole Sodium (Protonix Inj) 40 mg IVP DAILY [facility] Last Admin: 02/11/18 09:04 Dose: 40 mg - Labs Labs: 02/11/18 05:45 02/11/18 05:45 PT 14.3 Seconds (9.8-13.1) H 02/10/18 05:40 INR 1.3 02/10/18 05:40 APTT 31.6 Seconds (25.6-37.1) 02/10/18 05:40 - GI/Abdominal Exam Additional comments: soft, NT, ND, BS+, no rebound, no guarding, negative Parish's sign Assessment and Plan - Assessment and Plan (Free Text) Plan: - Clear for discharge home from general surgery stand point - Augmentin for 7 days on discharge - patient will be brought to the hospital next week for elective cholecystectomy
[2018-02-11] MEDS ORDERED: Ciprofloxacin 400mg/200ml D5W 400 MG/200 ML BAG IVPB ONE (10:00)
[2018-02-11] MEDS ORDERED: Indomethacin 50 MG Suppository PR ONE (10:30)
[2018-02-11] MEDS ORDERED: Glucagon Recombinant 1 mg Inj ONE (10:36)
[2018-02-11] MEDS ORDERED: Etomidate 20 mg/10ml Inj IV ONE (10:37)
[2018-02-11] MEDS ORDERED: Propofol 10 mg/ml Inj (20 ML) ONE (10:38)
[2018-02-11] MEDS ORDERED: Midazolam 2 MG/2 ML VIAL ONE (10:38)
[2018-02-11 11:31] VITALS: RESP 18; O2SAT 98
--- NOTE | 2018-02-11 13:17 | CP.PCM.DIS ---
Provider - Provider Date of Admission: 02/08/18 22:05 Attending physician: Dallin Pulido MD Time Spent in preparation of Discharge (in minutes): 35 Hospital Course - Lab Results Lab Results: Micro Results 02/09/18 01:35 Blood-Venous Blood Culture - Preliminary NO GROWTH AFTER 48 HOURS 02/09/18 01:05 Blood-Venous Blood Culture - Preliminary NO GROWTH AFTER 48 HOURS 02/08/18 18:27 Urine Urine Culture - Final No Growth (<1,000 CFU/ML) Most Recent Lab Values WBC 7.2 K/uL (4.8-10.8) 02/11/18 05:45 RBC 5.32 Mil/uL (4.40-5.90) 02/11/18 05:45 Hgb 15.2 g/dL (12.0-18.0) 02/11/18 05:45 Hct 46.4 % (35.0-51.0) 02/11/18 05:45 MCV 87.3 fl (80.0-94.0) 02/11/18 05:45 MCH 28.6 pg (27.0-31.0) 02/11/18 05:45 MCHC 32.7 g/dL (33.0-37.0) L 02/11/18 05:45 RDW 14.2 % (11.5-14.5) 02/11/18 05:45 Plt Count 226 K/uL (130-400) 02/11/18 05:45 MPV 7.8 fl (7.2-11.7) 02/11/18 05:45 Neut % (Auto) 61.5 % (50.0-75.0) 02/11/18 05:45 Lymph % (Auto) 23.3 % (20.0-40.0) 02/11/18 05:45 Barron % (Auto) 10.4 % (0.0-10.0) H 02/11/18 05:45 Eos % (Auto) 4.3 % (0.0-4.0) H 02/11/18 05:45 Baso % (Auto) 0.5 % (0.0-2.0) 02/11/18 05:45 Neut # (Auto) 4.4 K/uL (1.8-7.0) 02/11/18 05:45 Lymph # (Auto) 1.7 K/uL (1.0-4.3) 02/11/18 05:45 Barron # (Auto) 0.7 K/uL (0.0-0.8) 02/11/18 05:45 Eos # (Auto) 0.3 K/uL (0.0-0.7) 02/11/18 05:45 Baso # (Auto) 0.0 K/uL (0.0-0.2) 02/11/18 05:45 PT 14.3 Seconds (9.8-13.1) H 02/10/18 05:40 INR 1.3 02/10/18 05:40 APTT 31.6 Seconds (25.6-37.1) 02/10/18 05:40 Sodium 139 mmol/l (132-148) 02/11/18 05:45 Potassium 4.4 MMOL/L (3.6-5.0) 02/11/18 05:45 Chloride 104 mmol/L (98-107) 02/11/18 05:45 Carbon Dioxide 29 mmol/L (22-30) 02/11/18 05:45 Anion Gap 10 (10-20) 02/11/18 05:45 BUN 8 mg/dl (9-20) L 02/11/18 05:45 Creatinine 1.1 mg/dl (0.8-1.5) 02/11/18 05:45 Est GFR ( Amer) > 60 02/11/18 05:45 Est GFR (Non-Af Amer) > 60 02/11/18 05:45 Random Glucose 120 mg/dL (75-110) H 02/11/18 05:45 Lactic Acid 1.0 MMOL/L (0.7-2.1) 02/09/18 01:05 Calcium 9.0 mg/dL (8.4-10.2) 02/11/18 05:45 Total Bilirubin 0.6 mg/dl (0.2-1.3) 02/11/18 05:45 AST 20 U/L (17-59) 02/11/18 05:45 ALT 25 U/L (21-72) 02/11/18 05:45 Alkaline Phosphatase 34 U/L (38-126) L 02/11/18 05:45 Total Protein 6.9 G/DL (6.3-8.2) 02/11/18 05:45 Albumin 3.8 g/dL (3.5-5.0) 02/11/18 05:45 Globulin 3.1 gm/dL (2.2-3.9) 02/11/18 05:45 Albumin/Globulin Ratio 1.2 (1.0-2.1) 02/11/18 05:45 Lipase 68 U/L (23-300) 02/08/18 18: Urine Color Yellow (YELLOW) 02/08/18 18:27 Urine Clarity Clear (Clear) 02/08/18 18:27 Urine pH 5.0 (5.0-8.0) 02/08/18 18: Ur Specific [place] 1.023 (1.003-1.030) 02/08/18 18:27 Urine Protein Negative mg/dL (NEGATIVE) 02/08/18 18:27 Urine Glucose (UA) Neg mg/dL (Normal) 02/08/18 18: Urine Ketones Negative mg/dL (NEGATIVE) 02/08/18 18:27 Urine Blood Small (NEGATIVE) 02/08/18 18:27 Urine Nitrate Negative (NEGATIVE) 02/08/18 18:27 Urine Bilirubin Negative (NEGATIVE) 02/08/18 18:27 Urine Urobilinogen 0.2-1.0 mg/dL (0.2-1.0) 02/08/18 18:27 Ur Leukocyte Esterase Neg Harris/uL (Negative) 02/08/18 18:27 Urine RBC (Auto) 5 /hpf (0-3) H 02/08/18 18:27 Urine Microscopic WBC < 1 /hpf (0-5) 02/08/18 18:27 Ur Squamous Epith Cells < 1 /hpf (0-5) 02/08/18 18:27 - Hospital Course Hospital Course: 53 yr old M presented to ED with complaints of severe sharp abdominal pain severity 04/16 which began earlier in the day after eating a sandwich. PMHx includes [place] in 2012, negative cardiac catheterization at [facility] 2012, lap band removal 2015. Associated symptoms are 1 episode of nonbilious/nonbloody emesis and nausea. Pain is located in epigastric area and radiates to RLQ and back. Patient reports similar episodes in the past (1st one was 2.5 yrs ago) which have resolved on their own. Abd/Pelvis CT (02/08): Findings consistent with acute cholecystitis. U/S (02/08): Distended gallbladder without visible gallstones. Gallbladder wall thickening and pericholecystic fluid without sonographic Parish's sign. Patient was admitted to med/surg for cholecystitis. He was kept NPO, given IV fluids (D5 0.5 NS + 20 meq K), Zofran 4 mg IVP Q6 PRN, Zosyn 3.375 gm IV Q6 and put on a pain management regimen of Dilaudid 1 mg IVP Q4 PRN for severe pain. MRCP (02/10), ERCP (02/11), patient tolerated ERCP well and was seen bedside tolerating PO liquids, ambulating and reported no difficulty voiding. He was asymptomatic and denied nausea, vomitting, chest pain, shortness of breath. Patient was cleared from the surgical and medical team for discharge to home. Recommeded to follow up outpatient with Dr. Medrano to schedule laparoscopic cholecystectomy. Discharge Exam - Head Exam Head Exam: ATRAUMATIC - Eye Exam Eye Exam: Normal appearance - ENT Exam ENT Exam: Mucous Membranes Moist, Normal Exam - Neck Exam Neck exam: Full Rom - Respiratory Exam Respiratory Exam: Clear to PA & Lateral, NORMAL BREATHING PATTERN, UNREMARKABLE - Cardiovascular Exam Cardiovascular Exam: REGULAR RHYTHM - GI/Abdominal Exam GI & Abdominal Exam: Normal Bowel Sounds, Tenderness (very minimal RUQ) - Extremities Exam Extremities exam: normal inspection - Back Exam Back exam: absent: CVA tenderness (L), CVA tenderness (R) - Neurological Exam Neurological exam: Alert, Oriented x3 - Psychiatric Exam Psychiatric exam: Normal Affect, Normal Mood - Skin Skin Exam: Dry, Normal Color, Warm Discharge Plan - Discharge Medications Prescriptions: Amoxicillin/Clavulanate [Augmentin 875 MG-125 MG] 1 tab PO BID #14 tab - Follow Up Plan Condition: STABLE Disposition: HOME/ ROUTINE Instructions: Cholecystitis (DC) Additional Instructions: Follow up with surgery as per scheduled laparoscopic cholecystectomy.
[2018-02-11 13:38] VITALS: BP 159/99; PULSE 51; TEMP 97.4
--- NOTE | 2018-02-11 16:02 | RAD ---
Date of service: 02/11/2018 PROCEDURE: Intraoperative Fluoroscopy. HISTORY: ERCP FINDINGS: Fluoroscopic assistance was provided for ERCP. Images demonstrate cannulation of the common bile duct by endoscope with opacification of the common bile duct and intrahepatic biliary tree appreciated subsequently. Balloon sweeps of the common bile duct are demonstrated. No suspicious filling defect or contrast collection is appreciated in the final spot fluoroscopic images. Please refer to the operative report from [facility]. 82.8 seconds of fluoroscopy time was utilized with a radiation cumulative dose of 49.11 mGy.
== END 2018-02-11 14:11 | disposition home or self-care (01) | DRG 446 ==
LOC: H.ER 16:19 → H.ERHOLD 22:05 → H.MEDSURG1 02-09 01:58
PROVIDERS: ADMIT Internal Medicine; ATTEND Internal Medicine
PROC: 0FC98ZZ Extirpation of Matter from Common Bile Duct, Via Natural or Artificial Opening Endoscopic (ICD-10-PCS; 2018-02-11)
PROC: 0F798ZZ Dilation of Common Bile Duct, Via Natural or Artificial Opening Endoscopic (ICD-10-PCS; 2018-02-11)
PROC: 0DB68ZX Excision of Stomach, Via Natural or Artificial Opening Endoscopic, Diagnostic (ICD-10-PCS; principal; 2018-02-11 12:15)
DX: K80.62 Calculus of gallbladder and bile duct with acute cholecystitis without obstruction (principal); K31.89 Other diseases of stomach and duodenum; I25.10 Atherosclerotic heart disease of native coronary artery without angina pectoris; Z95.5 Presence of coronary angioplasty implant and graft; K44.9 Diaphragmatic hernia without obstruction or gangrene; I25.2 Old myocardial infarction; R03.0 Elevated blood-pressure reading, without diagnosis of hypertension; E66.9 Obesity, unspecified; Z68.36 Body mass index [BMI] 36.0-36.9, adult; Z91.14 Patient's other noncompliance with medication regimen; F12.90 Cannabis use, unspecified, uncomplicated; K76.0 Fatty (change of) liver, not elsewhere classified

== ENCOUNTER 2018-02-18 06:41 | Day surgery (SDC) | payer OTHER ==
[2018-02-15 08:58] VITALS: BMI 35.6
[2018-02-18] MEDS ORDERED: Lactated Ringer's 1,000 ML IV ONE ×2 (07:39→10:30)
--- NOTE | 2018-02-18 07:42 | CP.SDSHP ---
Same Day Surgery H & P - History Proposed Procedure: Laparoscopic Cholecystectomy Pre-Op Diagnosis: Cholelithiasis, acute cholecystitis, s/p gallstone pancreatitis - Previous Medical/Surgical History Cardiac: Hypertension, Previous [place] (2012, s/p negative catheterization 2012, normal echo/stress test 10/2017) Pain: 0. No Pain Previous Surgical History: lap band s/p removal; anal fistulotomy - Allergies Allergies: Allergies No Known Allergies Allergy (Verified 02/08/18 16:40) - Physical Exam Vital Signs: Vital Signs 02/18/18 02/18/18 07:17 07:19 Temperature 98.2 F Pulse Rate 76 76 Respiratory 20 Rate Blood Pressure 152/97 H O2 Sat by Pulse 96 Oximetry Mental Status: Alert & Oriented x3 Neuro: WNL Heart: WNL Lungs: WNL GI: WNL - Impression Impression: 53 M s/p gallstone pancreatitis presents for laparoscopic cholecystectomy Pt. Evaluated Today:Candidate for Anesthesia & Procedure: Yes - Date & Time Date: 02/18/18 Time: 08:04 Short Stay Discharge - Short Stay Discharge Admitting Diagnosis/Reason for Visit: K81.0 Disposition: HOME/ ROUTINE Medications: oxyCODONE/Acetaminophen [Percocet 5/325 mg Tab] 1 tab PO Q4 PRN 3 Days tab PRN Reason: Pain, Moderate (4-7) Referrals: Sergio Harmon MD [Primary Care Provider] - Sixto Medrano MD [Staff Provider] - Additional Instructions (Diet, Activity): Take percocet as prescribed for pain No heavy lifting for 3-4 weeks Keep area clean and dry May shower Follow up with Dr. Medrano as outpatient within 1-2 weeks Please return to ED if symptoms persist or condition worsens Progress Note/Discharge Note with Instructions: 53 M with acute cholcystitis after a bout of gallstone pancreatitis s/p Laparoscopic Cholecystectomy POD#0
[2018-02-18] MEDS ORDERED: Rocuronium 10 mg/ml (5 ml) ONE (08:19)
[2018-02-18] MEDS ORDERED: Succinylcholine 200 mg/10 ml Inj IV ONE (08:19)
[2018-02-18] MEDS ORDERED: Propofol 10 mg/ml Inj (20 ML) ONE (08:19)
[2018-02-18] MEDS ORDERED: Lidocaine 4% (Laryng-O-Jet) Kit MM ONE (08:19)
[2018-02-18] MEDS ORDERED: Midazolam 2 MG/2 ML VIAL ONE (08:22)
[2018-02-18] MEDS ORDERED: Bupivacaine HCl 0.5% PF (30 ml) Inj ONE (08:40)
--- NOTE | 2018-02-18 08:43 | CARD ---
APPROVED REPORT Date of service: 02/18/2018 <Conclusion> Normal sinus rhythm Normal ECG
[2018-02-18] MEDS ORDERED: Dexamethasone 4 mg/1 ml ONE (09:56)
[2018-02-18] MEDS ORDERED: Phenylephrine 10 mg/ml Inj ONE (10:05)
[2018-02-18] MEDS ORDERED: Bupivacaine 0.5% Inj(30mL) IJ ONE ×2 (10:05→10:49)
[2018-02-18] MEDS ORDERED: Neostigmine 1:1000 (1 mg/ml) Inj ONE (10:39)
[2018-02-18] MEDS ORDERED: Oxycodone/Acetaminophen 5/325 mg Tab PO PRN (11:09)
--- NOTE | 2018-02-18 11:09 | PCM.SURG1 ---
<Alonzo Toledo - Last Filed: 02/18/18 11:07> Surgeon's Initial Post Op Note - Surgeon's Notes Surgeon: Dr. Medrano Commercial Property Administrator: PGY4, [place] PGY2 Type of Anesthesia: General Endo, Local Anesthesia Administered By: Dr. Dani Fair Pre-Operative Diagnosis: Acute cholecystitis, s/p Gallstone pancreatitis Operative Findings: Acute cholecystitis Post-Operative Diagnosis: Acute cholecystitis, s/p Gallstone pancreatitis Operation Performed: Laparoscopic Cholecystectomy Specimen/Specimens Removed: Gallbladder Estimated Blood Loss: EBL {In ML}: 25 Blood Products Given: N/A Drains Used: No Drains Post-Op Condition: Good Date of Surgery/Procedure: 02/18/18 Time of Surgery/Procedure: 11:09 <Sixto Medrano - Last Filed: 02/19/18 13:53> Surgeon's Initial Post Op Note - Surgeon's Notes Pre-Operative Diagnosis: acute cholecystitis and choledocholithiasis Post-Operative Diagnosis: acute cholecystitis and choledocholithiasis
[2018-02-18] MEDS ORDERED: HYDROmorphone 0.5 mg/0.5 ml ISec IVP PRN (11:11)
[2018-02-18] MEDS ORDERED: Dexamethasone 4 mg/1 ml IVP PRN (11:11)
[2018-02-18] MEDS ORDERED: DiphenhydrAMINE 50 mg/ml Inj IVP PRN (11:11)
[2018-02-18] MEDS ORDERED: Lactated Ringer's 1,000 ML IV SCH (11:15)
[2018-02-18 11:28] VITALS: RESP 18; O2SAT 99
[2018-02-18 14:34] VITALS: BP 138/89; PULSE 76; TEMP 98.2
--- NOTE | 2018-02-18 22:07 | OP ---
PROCEDURE DATE: 02/18/2018 PREOPERATIVE DIAGNOSES: Choledocholithiasis, cholecystitis. POSTOPERATIVE DIAGNOSES: Choledocholithiasis, cholecystitis. PROCEDURE: Laparoscopic cholecystectomy. SURGEON: Sixto Medrano MD SUPPLIER MANAGER: Michael Wooten DO SECOND SUPPLIER MANAGER: Alonzo Toledo DO. ANESTHESIA: General endotracheal intubation. ANESTHESIOLOGIST: Олег Fair MD INTRAOPERATIVE FINDINGS: Acute cholecystitis. IV FLUID INTAKE: Crystalloids. ESTIMATED BLOOD LOSS: 25 mL. SPECIMEN: Gallbladder. BRIEF HISTORY: Mr. Antoine is a very pleasant 53-year-old gentleman, who initially presented to the hospital complaining of abdominal pain and upon further investigation, ultrasound and MRCP, was found to have choledocholithiasis. Subsequent to that, the patient was treated with antibiotics and underwent ERCP with Dr. Ngo from G[facility] and had an extraction of the common bile duct stone. Subsequent to that, the patient was feeling much better and was discharged home and was brought in today for elective cholecystectomy. All the risks and benefits of the procedure were explained to the patient. With the patient having a full understanding of all the risks and benefits involved, informed consent was obtained and the patient was taken to the operating room for the above-stated procedure. DESCRIPTION OF PROCEDURE: The patient was brought in to the operating room and placed supine on the operating table. Bilateral Flowtron boots were applied to the patient's lower extremities. After successful induction of anesthesia and successful endotracheal intubation by the anesthesia team, the patient's abdomen was prepped with Chloraprep stick and draped in a standard surgical fashion. Prior to the beginning of the procedure, time-out was called in the room and everyone in the room were in agreement. The patient received prophylactic antibiotic prior to the incision time. Subsequent to that, using a Veress needle, the patient's abdomen was entered at the umbilicus and pneumoperitoneum was achieved with good opening pressures. Once this was accomplished, using an 11-blade scalpel knife, approximately a 1 cm incision was made in the umbilicus in a longitudinal fashion and subsequent to that, an 11-mm trocar was introduced into the patient's abdomen. At this point in time, a 5-mm 0-degree scope was introduced into the patient's abdomen and the abdomen was inspected. We immediately were able to visualize the gallbladder that appeared to be inflamed. Then attention was turned to the subxiphoid area. Using an 11-blade scalpel knife, a 5-mm incision was made in a transverse fashion and subsequent to that a 5-mm trocar was introduced into the patient's abdomen and then attention was turned to the right side of the patient's abdomen. Using an 11-blade scalpel knife, two 5 mm incisions were made in a transverse fashion on the right side of the patient's abdomen and subsequent to that, two 5 mm trocars were introduced into the patient's abdomen. At this point in time, using 2 Raul and Gechavez graspers, the gallbladder was grasped at the fundus and Jessica's pouch and subsequent to that using [place] dissector, cystic duct and cystic artery were dissected out and a critical view of safety was achieved. At this point in time, cystic duct appeared to be too thick for the Endo clip, so we made a decision to use a Vicryl loop. The duct was transected right next to the gallbladder. Subsequent to that, Endo loop was introduced into the patient's abdomen. Duct stump was grasped with [place] dissector and loop was tightened around the stump of the cystic duct. At this point in time, the string was cut with laparoscopic scissors and cystic artery was clipped with 2 clips proximal and one distal and transected with laparoscopic scissors. At this point in time, gallbladder was dissected off the gallbladder fossa using hook electrocautery and once the gallbladder was completely freed up from the gallbladder fossa, an EndoCatch bag was introduced into the patient's abdomen. Gallbladder was placed inside of the bag and the bag was closed. At this point in time, gallbladder fossa was inspected for hemostasis. Hemostasis was achieved with hook electrocautery. Subsequent to that, gallbladder fossa and abdominal cavity were copiously irrigated with sterile saline and sterile saline was suctioned out. At this point in time, an 11-mm trocar together with EndoCatch bag and gallbladder were removed from the patient's abdomen and passed off to the [facility] as a specimen. Fascial layer at the umbilical port site was closed with one interrupted 0 Vicryl suture on UR-6 needle and subsequent to that, the patient's abdomen was fully desufflated. The rest of the trocars were removed from the patient's abdomen and the skin was closed with a 4-0 Monocryl suture in a running subcuticular fashion. At the end of the procedure, the incision sites were infiltrated with Marcaine anesthetic. The patient's abdomen was washed and dried and Dermabond was applied to the site of the incisions. The patient was successfully extubated by the anesthesia team, transferred to the stretcher, and taken to the recovery room in a stable condition. At the end of the procedure, all instrument counts, needles, and sponges were correct. Sixto Medrano MD
== END 2018-02-18 13:40 | disposition home or self-care (01) ==
LOC: H.OPSURG 06:41
PROVIDERS: ATTEND Surgery
DX: K80.40 Calculus of bile duct with cholecystitis, unspecified, without obstruction (principal); I25.2 Old myocardial infarction; I10 Essential (primary) hypertension
CPT/HCPCS: 47562; 88304; 93005; J0330; J0690; J1100; J2001; J2250; J2370; J2405; J2704; J2710; J3010; J7120